=== PATIENT | female | born 1955 | race Caucasian/White ===

== ENCOUNTER 2024-04-24 02:45 | Outpatient (CLI) | payer MEDICARE, SELFPAY ==
[2024-04-24 08:57] LABS: Abs Immature Grans 0.09 10^3/uL (0.0-0.06); Absolute Basophil Count 0.08 10^3/uL (0.0-0.2); Absolute Eosinophil Count 0.26 10^3/uL (0.0-0.7); Absolute Lymphocyte Count 1.45 10^3/uL (1.2-3.4); Absolute Monocyte Count 0.55 10^3/uL (0.1-0.8); Absolute Neutrophil Count 5.56 10^3/uL (1.2-6.7); Eosinophils % 3.3 %; HCT 43.1 % (36.0-46.0); HGB 14.6 g/dL (11.2-15.7); Immature Grans % 1.1 %; Lymphocytes % 18.1 %; MCH 29.4 pg (27.0-33.0); MCHC 33.9 % (32.0-36.0); MCV 87 fL (80-95); Monocytes % 6.9 %; Neutrophils % 69.6 %; Platelet Count 222 10^3/uL (130-400); RBC 4.97 10^6/uL (3.93-5.22); RDW-SD 44.3 fL; WBC 7.99 10^3/uL (4.4-10.8)
[2024-04-24 09:18] LABS: ALT 49 U/L (14-59); AST 32 U/L (15-37); Albumin 3.5 g/dL (3.4-5.0); Alkaline Phosphatase 181 U/L (46-116); Anion Gap 10.5 mmol/L (3-11); BUN 22 mg/dL (7-18); Bilirubin, Total 0.52 mg/dL (0.2-1.0); CO2 29.5 mmol/L (21.0-32.0); CREATININE 1.5 mg/dL (0.55-1.02); Calcium 9.1 mg/dL (8.5-10.1); Chloride 99 mmol/L (98-107); Estimated GFR 37.96 (mL/min/1.73m2); Glucose 337 mg/dL (74-106); Magnesium 1.4 mg/dL (1.8-2.4); Potassium 3.7 mmol/L (3.5-5.1); Sodium 139 mmol/L (136-145); Total Protein 7.5 g/dL (6.4-8.2)
== END 2024-04-24 02:46 | disposition home or self-care (01) ==
PROVIDERS: PCP Nurse Practitioner Family; Visit Provider Internal Medicine Medical Oncology
DX: C34.32 Malignant neoplasm of lower lobe, left bronchus or lung (principal)
CPT/HCPCS: 36415; 80053; 83735; 85025

== ENCOUNTER 2024-05-01 10:05 | Outpatient (REF) | payer MEDICARE, SELFPAY ==
[2024-05-01 10:51] LABS: Abs Immature Grans 0.05 10^3/uL (0.0-0.06); Absolute Basophil Count 0.04 10^3/uL (0.0-0.2); Absolute Eosinophil Count 0.21 10^3/uL (0.0-0.7); Absolute Monocyte Count 0.26 10^3/uL (0.1-0.8); Absolute Neutrophil Count 4.74 10^3/uL (1.2-6.7); Basophils % 0.6 %; Eosinophils % 3.2 %; HCT 41.9 % (36.0-46.0); HGB 14.4 g/dL (11.2-15.7); Immature Grans % 0.8 %; Lymphocytes % 18.5 %; MCH 29.6 pg (27.0-33.0); MCHC 34.4 % (32.0-36.0); MCV 86 fL (80-95); MPV 12.7 fL (8.0-11.0); Neutrophils % 72.9 %; Platelet Count 202 10^3/uL (130-400); RBC 4.86 10^6/uL (3.93-5.22); RDW-SD 43.9 fL
[2024-05-01 11:01] LABS: ALT 51 U/L (14-59); AST 44 U/L (15-37); Albumin 3.6 g/dL (3.4-5.0); Alkaline Phosphatase 191 U/L (46-116); Anion Gap 12.9 mmol/L (3-11); BUN 25 mg/dL (7-18); Bilirubin, Total 0.59 mg/dL (0.2-1.0); CO2 25.1 mmol/L (21.0-32.0); CREATININE 1.5 mg/dL (0.55-1.02); Calcium 9.7 mg/dL (8.5-10.1); Chloride 99 mmol/L (98-107); Estimated GFR 37.96 (mL/min/1.73m2); Glucose 341 mg/dL (74-106); Magnesium 1.5 mg/dL (1.8-2.4); Potassium 4.3 mmol/L (3.5-5.1); Sodium 137 mmol/L (136-145); Total Protein 7.7 g/dL (6.4-8.2)
== END 2024-05-01 10:06 | disposition home or self-care (01) ==
LOC: LBN 10:05
PROVIDERS: PCP Nurse Practitioner Family; Visit Provider Internal Medicine Medical Oncology
DX: C34.32 Malignant neoplasm of lower lobe, left bronchus or lung (principal)
CPT/HCPCS: 80053; 83735; 85025

== ENCOUNTER 2024-05-08 03:09 | Outpatient (CLI) | payer MEDICARE, SELFPAY ==
[2024-05-08 08:11] LABS: Abs Immature Grans 0.06 10^3/uL (0.0-0.06); Absolute Basophil Count 0.06 10^3/uL (0.0-0.2); Absolute Eosinophil Count 0.15 10^3/uL (0.0-0.7); Absolute Lymphocyte Count 1.27 10^3/uL (1.2-3.4); Absolute Monocyte Count 0.37 10^3/uL (0.1-0.8); Absolute Neutrophil Count 2.62 10^3/uL (1.2-6.7); Basophils % 1.3 %; Eosinophils % 3.3 %; HCT 42.6 % (36.0-46.0); HGB 14.4 g/dL (11.2-15.7); Immature Grans % 1.3 %; MCH 29.6 pg (27.0-33.0); MCHC 33.8 % (32.0-36.0); MCV 88 fL (80-95); MPV 12.2 fL (8.0-11.0); Monocytes % 8.2 %; Neutrophils % 57.9 %; Platelet Count 223 10^3/uL (130-400); RBC 4.87 10^6/uL (3.93-5.22); RDW 14.3 % (11.7-14.6); RDW-SD 45.1 fL; WBC 4.53 10^3/uL (4.4-10.8)
[2024-05-08 08:27] LABS: ALT 45 U/L (14-59); AST 37 U/L (15-37); Albumin 3.6 g/dL (3.4-5.0); Alkaline Phosphatase 101 U/L (46-116); Anion Gap 9.2 mmol/L (3-11); BUN 32 mg/dL (7-18); Bilirubin, Total 0.81 mg/dL (0.2-1.0); CO2 27.8 mmol/L (21.0-32.0); CREATININE 2.2 mg/dL (0.55-1.02); Calcium 8.7 mg/dL (8.5-10.1); Chloride 96 mmol/L (98-107); Estimated GFR 23.97 (mL/min/1.73m2); Glucose 334 mg/dL (74-106); Magnesium 1.5 mg/dL (1.8-2.4); Potassium 3.7 mmol/L (3.5-5.1); Sodium 133 mmol/L (136-145); Total Protein 7.5 g/dL (6.4-8.2)
== END 2024-05-08 03:10 | disposition home or self-care (01) ==
PROVIDERS: PCP Nurse Practitioner Family; Visit Provider Internal Medicine Medical Oncology
DX: C34.32 Malignant neoplasm of lower lobe, left bronchus or lung (principal)
CPT/HCPCS: 36415; 80053; 83735; 85025

== ENCOUNTER 2024-05-22 04:13 | Outpatient (CLI) | payer MEDICARE, SELFPAY ==
[2024-05-22 07:41] LABS: Abs Immature Grans 0.14 10^3/uL (0.0-0.06); Absolute Basophil Count 0.07 10^3/uL (0.0-0.2); Absolute Eosinophil Count 0.28 10^3/uL (0.0-0.7); Absolute Lymphocyte Count 1.02 10^3/uL (1.2-3.4); Absolute Monocyte Count 0.73 10^3/uL (0.1-0.8); Absolute Neutrophil Count 4.82 10^3/uL (1.2-6.7); HGB 11.7 g/dL (11.2-15.7); Lymphocytes % 14.4 %; MCH 30.2 pg (27.0-33.0); MCHC 34.4 % (32.0-36.0); MCV 88 fL (80-95); MPV 11.7 fL (8.0-11.0); Monocytes % 10.3 %; Neutrophils % 68.3 %; Platelet Count 156 10^3/uL (130-400); RBC 3.87 10^6/uL (3.93-5.22); RDW 16.4 % (11.7-14.6); RDW-SD 49.7 fL; WBC 7.06 10^3/uL (4.4-10.8)
[2024-05-22 08:00] LABS: ALT 86 U/L (14-59); AST 35 U/L (15-37); Albumin 3.1 g/dL (3.4-5.0); Alkaline Phosphatase 142 U/L (46-116); Anion Gap 9.6 mmol/L (3-11); BUN 13 mg/dL (7-18); Bilirubin, Total 0.4 mg/dL (0.2-1.0); CO2 27.4 mmol/L (21.0-32.0); Calcium 8.5 mg/dL (8.5-10.1); Chloride 104 mmol/L (98-107); Estimated GFR 61.75 (mL/min/1.73m2); Glucose 266 mg/dL (74-106); Magnesium 0.9 mg/dL (1.8-2.4); Potassium 3.7 mmol/L (3.5-5.1); Sodium 141 mmol/L (136-145); Total Protein 6.4 g/dL (6.4-8.2)
== END 2024-05-22 04:14 | disposition home or self-care (01) ==
LOC: LBO 04:13
PROVIDERS: PCP Nurse Practitioner Family; Visit Provider Internal Medicine Medical Oncology
DX: C34.32 Malignant neoplasm of lower lobe, left bronchus or lung (principal)
CPT/HCPCS: 36415; 80053; 83735; 85025

== ENCOUNTER 2024-05-29 01:58 | Outpatient (CLI) | payer MEDICARE, SELFPAY ==
[2024-05-29 08:16] LABS: Abs Immature Grans 0.07 10^3/uL (0.0-0.06); Absolute Basophil Count 0.05 10^3/uL (0.0-0.2); Absolute Eosinophil Count 0.27 10^3/uL (0.0-0.7); Absolute Lymphocyte Count 1.14 10^3/uL (1.2-3.4); Absolute Monocyte Count 0.49 10^3/uL (0.1-0.8); Absolute Neutrophil Count 3.41 10^3/uL (1.2-6.7); Basophils % 0.9 %; HGB 11.2 g/dL (11.2-15.7); Immature Grans % 1.3 %; MCHC 33.9 % (32.0-36.0); MCV 91 fL (80-95); Neutrophils % 62.8 %; Platelet Count 149 10^3/uL (130-400); RBC 3.61 10^6/uL (3.93-5.22); RDW 17.8 % (11.7-14.6); RDW-SD 58.3 fL; WBC 5.43 10^3/uL (4.4-10.8)
[2024-05-29 08:31] LABS: ALT 60 U/L (14-59); AST 30 U/L (15-37); Albumin 3.2 g/dL (3.4-5.0); Alkaline Phosphatase 182 U/L (46-116); Anion Gap 7.3 mmol/L (3-11); BUN 18 mg/dL (7-18); Bilirubin, Total 0.3 mg/dL (0.2-1.0); CO2 27.7 mmol/L (21.0-32.0); CREATININE 1.1 mg/dL (0.55-1.02); Calcium 9.1 mg/dL (8.5-10.1); Chloride 102 mmol/L (98-107); Estimated GFR 55.07 (mL/min/1.73m2); Glucose 329 mg/dL (74-106); Magnesium 1.6 mg/dL (1.8-2.4); Potassium 4.4 mmol/L (3.5-5.1); Sodium 137 mmol/L (136-145); Total Protein 6.6 g/dL (6.4-8.2)
== END 2024-05-29 01:59 | disposition home or self-care (01) ==
PROVIDERS: PCP Nurse Practitioner Family; Visit Provider Internal Medicine Medical Oncology
DX: C34.32 Malignant neoplasm of lower lobe, left bronchus or lung (principal)
CPT/HCPCS: 36415; 80053; 83735; 85025

== ENCOUNTER 2024-06-05 02:44 | Outpatient (CLI) | payer MEDICARE, SELFPAY ==
[2024-06-05 09:36] LABS: Abs Immature Grans 0.08 10^3/uL (0.0-0.06); Absolute Basophil Count 0.05 10^3/uL (0.0-0.2); Absolute Eosinophil Count 0.27 10^3/uL (0.0-0.7); Absolute Lymphocyte Count 1.11 10^3/uL (1.2-3.4); Absolute Monocyte Count 0.32 10^3/uL (0.1-0.8); Absolute Neutrophil Count 3.87 10^3/uL (1.2-6.7); Basophils % 0.9 %; Eosinophils % 4.7 %; HCT 35.2 % (36.0-46.0); HGB 11.8 g/dL (11.2-15.7); Immature Grans % 1.4 %; Lymphocytes % 19.5 %; MCH 31.1 pg (27.0-33.0); MCHC 33.5 % (32.0-36.0); MCV 93 fL (80-95); MPV 10.9 fL (8.0-11.0); Monocytes % 5.6 %; Neutrophils % 67.9 %; Platelet Count 208 10^3/uL (130-400); RDW-SD 60.5 fL
[2024-06-05 10:50] LABS: ALT 92 U/L (14-59); AST 57 U/L (15-37); Albumin 3.5 g/dL (3.4-5.0); Alkaline Phosphatase 169 U/L (46-116); Anion Gap 8.5 mmol/L (3-11); BUN 21 mg/dL (7-18); Bilirubin, Total 0.4 mg/dL (0.2-1.0); CO2 28.5 mmol/L (21.0-32.0); CREATININE 1.1 mg/dL (0.55-1.02); Calcium 9.1 mg/dL (8.5-10.1); Chloride 103 mmol/L (98-107); Estimated GFR 55.07 (mL/min/1.73m2); Glucose 235 mg/dL (74-106); Magnesium 1.7 mg/dL (1.8-2.4); Potassium 4.9 mmol/L (3.5-5.1); Sodium 140 mmol/L (136-145); Total Protein 6.7 g/dL (6.4-8.2)
== END 2024-06-05 02:45 | disposition home or self-care (01) ==
LOC: LBO 02:44
PROVIDERS: PCP Nurse Practitioner Family; Visit Provider Internal Medicine Medical Oncology
DX: C34.32 Malignant neoplasm of lower lobe, left bronchus or lung (principal)
CPT/HCPCS: 36415; 80053; 83735; 85025

== ENCOUNTER 2024-06-12 01:53 | Outpatient (CLI) | payer MEDICARE, SELFPAY ==
[2024-06-12 10:30] LABS: Abs Immature Grans 0.04 10^3/uL (0.0-0.06); Absolute Basophil Count 0.04 10^3/uL (0.0-0.2); Absolute Eosinophil Count 0.08 10^3/uL (0.0-0.7); Absolute Lymphocyte Count 1.09 10^3/uL (1.2-3.4); Absolute Monocyte Count 0.31 10^3/uL (0.1-0.8); Absolute Neutrophil Count 2.71 10^3/uL (1.2-6.7); Basophils % 0.9 %; Eosinophils % 1.9 %; HCT 32.3 % (36.0-46.0); HGB 10.8 g/dL (11.2-15.7); Immature Grans % 0.9 %; Lymphocytes % 25.5 %; MCH 31.6 pg (27.0-33.0); MCHC 33.4 % (32.0-36.0); MCV 94 fL (80-95); MPV 10.9 fL (8.0-11.0); Monocytes % 7.3 %; Neutrophils % 63.5 %; Platelet Count 198 10^3/uL (130-400); RBC 3.42 10^6/uL (3.93-5.22); RDW 18.5 % (11.7-14.6); WBC 4.27 10^3/uL (4.4-10.8)
[2024-06-12 10:45] LABS: ALT 174 U/L (14-59); AST 160 U/L (15-37); Albumin 3.5 g/dL (3.4-5.0); Alkaline Phosphatase 146 U/L (46-116); Anion Gap 9.8 mmol/L (3-11); BUN 16 mg/dL (7-18); Bilirubin, Total 0.5 mg/dL (0.2-1.0); CO2 25.2 mmol/L (21.0-32.0); CREATININE 1.3 mg/dL (0.55-1.02); Calcium 9.3 mg/dL (8.5-10.1); Chloride 106 mmol/L (98-107); Estimated GFR 45.07 (mL/min/1.73m2); Glucose 216 mg/dL (74-106); Magnesium 1.4 mg/dL (1.8-2.4); Potassium 4.9 mmol/L (3.5-5.1); Sodium 141 mmol/L (136-145); Total Protein 6.7 g/dL (6.4-8.2)
== END 2024-06-12 01:54 | disposition home or self-care (01) ==
LOC: LBO 01:53
PROVIDERS: PCP Nurse Practitioner Family; Visit Provider Internal Medicine Medical Oncology
DX: C34.32 Malignant neoplasm of lower lobe, left bronchus or lung (principal)
CPT/HCPCS: 36415; 80053; 83735; 85025

== ENCOUNTER 2024-06-20 02:31 | Outpatient (CLI) | payer MEDICARE, SELFPAY ==
[2024-06-20 09:43] LABS: Abs Immature Grans 0.06 10^3/uL (0.0-0.06); Absolute Basophil Count 0.05 10^3/uL (0.0-0.2); Absolute Eosinophil Count 0.07 10^3/uL (0.0-0.7); Absolute Lymphocyte Count 0.85 10^3/uL (1.2-3.4); Absolute Monocyte Count 0.51 10^3/uL (0.1-0.8); Absolute Neutrophil Count 3.73 10^3/uL (1.2-6.7); Basophils % 0.9 %; Eosinophils % 1.3 %; HCT 33.6 % (36.0-46.0); HGB 11.6 g/dL (11.2-15.7); Immature Grans % 1.1 %; Lymphocytes % 16.1 %; MCH 32.8 pg (27.0-33.0); MCHC 34.5 % (32.0-36.0); MCV 95 fL (80-95); MPV 11.6 fL (8.0-11.0); Monocytes % 9.7 %; Neutrophils % 70.9 %; Platelet Count 165 10^3/uL (130-400); RBC 3.54 10^6/uL (3.93-5.22); RDW 19.4 % (11.7-14.6); RDW-SD 66.2 fL; WBC 5.27 10^3/uL (4.4-10.8)
[2024-06-20 09:59] LABS: ALT 252 U/L (14-59); AST 97 U/L (15-37); Albumin 3.5 g/dL (3.4-5.0); Alkaline Phosphatase 147 U/L (46-116); Anion Gap 11.3 mmol/L (3-11); BUN 16 mg/dL (7-18); Bilirubin, Total 0.5 mg/dL (0.2-1.0); CO2 27.7 mmol/L (21.0-32.0); CREATININE 1.1 mg/dL (0.55-1.02); Calcium 9.1 mg/dL (8.5-10.1); Chloride 102 mmol/L (98-107); Estimated GFR 55.07 (mL/min/1.73m2); Glucose 138 mg/dL (74-106); Magnesium 1.4 mg/dL (1.8-2.4); Sodium 141 mmol/L (136-145); Total Protein 6.7 g/dL (6.4-8.2)
== END 2024-06-20 02:32 | disposition home or self-care (01) ==
LOC: LBO 02:32
PROVIDERS: PCP Nurse Practitioner Family; Visit Provider Internal Medicine Medical Oncology
DX: C34.32 Malignant neoplasm of lower lobe, left bronchus or lung (principal)
CPT/HCPCS: 36415; 80053; 83735; 85025

== ENCOUNTER 2024-07-03 10:23 | Outpatient (CLI) | payer MEDICARE, SELFPAY ==
[2024-07-03 10:29] LABS: Abs Immature Grans 0.12 10^3/uL (0.0-0.06); Absolute Basophil Count 0.06 10^3/uL (0.0-0.2); Absolute Eosinophil Count 0.13 10^3/uL (0.0-0.7); Absolute Lymphocyte Count 1.16 10^3/uL (1.2-3.4); Absolute Monocyte Count 0.46 10^3/uL (0.1-0.8); Absolute Neutrophil Count 4.08 10^3/uL (1.2-6.7); Eosinophils % 2.2 %; HCT 34.2 % (36.0-46.0); HGB 11.3 g/dL (11.2-15.7); Lymphocytes % 19.3 %; MCH 33.3 pg (27.0-33.0); MCV 101 fL (80-95); MPV 10.7 fL (8.0-11.0); Monocytes % 7.7 %; Neutrophils % 67.8 %; Platelet Count 178 10^3/uL (130-400); RBC 3.39 10^6/uL (3.93-5.22); RDW-SD 74.4 fL; WBC 6.01 10^3/uL (4.4-10.8)
[2024-07-03 10:53] LABS: ALT 161 U/L (14-59); AST 69 U/L (15-37); Albumin 3.5 g/dL (3.4-5.0); Alkaline Phosphatase 115 U/L (46-116); Anion Gap 7.1 mmol/L (3-11); BUN 21 mg/dL (7-18); Bilirubin, Total 0.4 mg/dL (0.2-1.0); CO2 27.9 mmol/L (21.0-32.0); CREATININE 1.2 mg/dL (0.55-1.02); Calcium 9.2 mg/dL (8.5-10.1); Chloride 102 mmol/L (98-107); Estimated GFR 49.61 (mL/min/1.73m2); Glucose 131 mg/dL (74-106); Magnesium 1.6 mg/dL (1.8-2.4); Potassium 4.4 mmol/L (3.5-5.1); Sodium 137 mmol/L (136-145); Total Protein 6.7 g/dL (6.4-8.2)
[2024-07-03 11:03] LABS: TSH 90.06 uIU/mL (0.36-3.74)
[2024-07-03 11:10] LABS: FREE T4 < 0.10 ng/dL (0.76-1.46)
== END 2024-07-03 11:00 | disposition home or self-care (01) ==
PROVIDERS: Internal Medicine Medical Oncology; PCP Nurse Practitioner Family; Visit Provider Nurse Practitioner Family
DX: C34.32 Malignant neoplasm of lower lobe, left bronchus or lung; Z79.899 Other long term (current) drug therapy
CPT/HCPCS: 80053; 83735; 84439; 84443; 85025

== ENCOUNTER 2024-08-01 02:40 | Outpatient (CLI) | payer MEDICARE, SELFPAY ==
[2024-08-01 09:04] LABS: Abs Immature Grans 0.02 10^3/uL (0.0-0.06); Absolute Basophil Count 0.04 10^3/uL (0.0-0.2); Absolute Eosinophil Count 0.13 10^3/uL (0.0-0.7); Absolute Lymphocyte Count 0.97 10^3/uL (1.2-3.4); Absolute Monocyte Count 0.74 10^3/uL (0.1-0.8); Absolute Neutrophil Count 4.22 10^3/uL (1.2-6.7); Basophils % 0.7 %; Eosinophils % 2.1 %; HCT 33.5 % (36.0-46.0); HGB 11.1 g/dL (11.2-15.7); Immature Grans % 0.3 %; Lymphocytes % 15.8 %; MCH 34.3 pg (27.0-33.0); MCHC 33.1 % (32.0-36.0); MCV 103 fL (80-95); Monocytes % 12.1 %; Platelet Count 227 10^3/uL (130-400); RBC 3.24 10^6/uL (3.93-5.22); RDW 14.2 % (11.7-14.6); RDW-SD 54.2 fL; WBC 6.12 10^3/uL (4.4-10.8)
[2024-08-01 09:45] LABS: ALT 58 U/L (14-59); AST 27 U/L (15-37); Albumin 3.5 g/dL (3.4-5.0); Alkaline Phosphatase 120 U/L (46-116); Anion Gap 7.5 mmol/L (3-11); BUN 19 mg/dL (7-18); Bilirubin, Total 0.4 mg/dL (0.2-1.0); CO2 28.5 mmol/L (21.0-32.0); CREATININE 0.9 mg/dL (0.55-1.02); Calcium 9.4 mg/dL (8.5-10.1); Chloride 106 mmol/L (98-107); Estimated GFR 70.07 (mL/min/1.73m2); FREE T4 1.41 ng/dL (0.76-1.46); Glucose 135 mg/dL (74-106); Magnesium 1.7 mg/dL (1.8-2.4); Potassium 4.3 mmol/L (3.5-5.1); Sodium 142 mmol/L (136-145); TSH 5.24 uIU/mL (0.36-3.74); Total Protein 6.8 g/dL (6.4-8.2)
== END 2024-08-01 02:41 | disposition home or self-care (01) ==
LOC: LBO 02:40
PROVIDERS: PCP Nurse Practitioner Family; Visit Provider Internal Medicine Medical Oncology
DX: Z79.899 Other long term (current) drug therapy (principal); C34.32 Malignant neoplasm of lower lobe, left bronchus or lung; C34.31 Malignant neoplasm of lower lobe, right bronchus or lung
CPT/HCPCS: 36415; 80053; 83735; 84439; 84443; 85025

== ENCOUNTER 2024-08-28 00:44 | Outpatient (CLI) | payer MEDICARE, SELFPAY ==
[2024-08-28 10:25] LABS: Abs Immature Grans 0.03 10^3/uL (0.0-0.06); Absolute Basophil Count 0.05 10^3/uL (0.0-0.2); Absolute Eosinophil Count 0.31 10^3/uL (0.0-0.7); Absolute Lymphocyte Count 1.34 10^3/uL (1.2-3.4); Absolute Monocyte Count 0.95 10^3/uL (0.1-0.8); Absolute Neutrophil Count 4.48 10^3/uL (1.2-6.7); Basophils % 0.7 %; Eosinophils % 4.3 %; HCT 35.2 % (36.0-46.0); HGB 11.8 g/dL (11.2-15.7); Immature Grans % 0.4 %; Lymphocytes % 18.7 %; MCH 32.4 pg (27.0-33.0); MCHC 33.5 % (32.0-36.0); MCV 97 fL (80-95); MPV 10.1 fL (8.0-11.0); Monocytes % 13.3 %; Neutrophils % 62.6 %; Platelet Count 233 10^3/uL (130-400); RBC 3.64 10^6/uL (3.93-5.22); RDW-SD 42.7 fL; WBC 7.16 10^3/uL (4.4-10.8)
[2024-08-28 11:02] LABS: ALT 23 U/L (14-59); AST 13 U/L (15-37); Albumin 3.3 g/dL (3.4-5.0); Alkaline Phosphatase 102 U/L (46-116); Anion Gap 6.5 mmol/L (3-11); BUN 22 mg/dL (7-18); Bilirubin, Total 0.4 mg/dL (0.2-1.0); CO2 30.5 mmol/L (21.0-32.0); CREATININE 0.8 mg/dL (0.55-1.02); Calcium 9.1 mg/dL (8.5-10.1); Chloride 105 mmol/L (98-107); Estimated GFR 80.71 (mL/min/1.73m2); FREE T4 1.36 ng/dL (0.76-1.46); Glucose 223 mg/dL (74-106); Magnesium 1.6 mg/dL (1.8-2.4); Potassium 4.6 mmol/L (3.5-5.1); Sodium 142 mmol/L (136-145); TSH 0.35 uIU/mL (0.36-3.74); Total Protein 6.9 g/dL (6.4-8.2)
== END 2024-08-28 00:45 | disposition home or self-care (01) ==
LOC: LBO 00:44
PROVIDERS: PCP Nurse Practitioner Family; Visit Provider Internal Medicine Medical Oncology
DX: Z79.899 Other long term (current) drug therapy (principal); C34.32 Malignant neoplasm of lower lobe, left bronchus or lung; C34.31 Malignant neoplasm of lower lobe, right bronchus or lung
CPT/HCPCS: 36415; 80053; 83735; 84439; 84443; 85025

== ENCOUNTER 2024-10-23 04:39 | Outpatient (CLI) | payer MEDICARE, SELFPAY ==
[2024-10-23 10:59] LABS: Abs Immature Grans 0.10 10^3/uL (0.0-0.06); HCT 31.0 % (36.0-46.0); HGB 10.3 g/dL (11.2-15.7); Immature Grans % 1.2 %; MCH 29.3 pg (27.0-33.0); MCHC 33.2 % (32.0-36.0); MCV 88 fL (80-95); MPV 10.9 fL (8.0-11.0); Platelet Count 239 10^3/uL (130-400); RBC 3.51 10^6/uL (3.93-5.22); RDW 15.1 % (11.7-14.6); RDW-SD 48.7 fL; WBC 8.18 10^3/uL (4.4-10.8)
[2024-10-23 11:22] LABS: ALT 15 U/L (14-59); AST 18 U/L (15-37); Albumin 2.1 g/dL (3.4-5.0); Alkaline Phosphatase 129 U/L (46-116); Anion Gap 11.8 mmol/L (3-11); BUN 14 mg/dL (7-18); Bilirubin, Total 0.3 mg/dL (0.2-1.0); CO2 27.2 mmol/L (21.0-32.0); Chloride 103 mmol/L (98-107); Estimated GFR 94.73 (mL/min/1.73m2); Glucose 141 mg/dL (74-106); Sodium 142 mmol/L (136-145); TSH 4.44 uIU/mL (0.36-3.74); Total Protein 5.8 g/dL (6.4-8.2)
[2024-10-23 11:23] LABS: Magnesium 0.7 mg/dL (1.8-2.4)
[2024-10-23 11:28] LABS: Calcium 5.7 mg/dL (8.5-10.1); Potassium 2.8 mmol/L (3.5-5.1)
== END 2024-10-23 04:40 | disposition home or self-care (01) ==
LOC: LBO 04:39
PROVIDERS: PCP Nurse Practitioner Family; Visit Provider Internal Medicine Medical Oncology
DX: Z79.899 Other long term (current) drug therapy (principal); C34.32 Malignant neoplasm of lower lobe, left bronchus or lung
CPT/HCPCS: 36415; 80053; 83735; 84439; 84443; 85025

== ENCOUNTER 2024-11-27 01:45 | Outpatient (CLI) | payer MEDICARE, SELFPAY ==
[2024-11-27 10:14] LABS: Abs Immature Grans 0.05 10^3/uL (0.0-0.06); HCT 29.9 % (36.0-46.0); HGB 9.0 g/dL (11.2-15.7); Immature Grans % 0.7 %; MCH 26.9 pg (27.0-33.0); MCHC 30.1 % (32.0-36.0); MCV 89 fL (80-95); MPV 10.9 fL (8.0-11.0); Platelet Count 310 10^3/uL (130-400); RBC 3.35 10^6/uL (3.93-5.22); RDW 15.8 % (11.7-14.6); RDW-SD 52.2 fL; WBC 7.67 10^3/uL (4.4-10.8)
[2024-11-27 10:38] LABS: ALT 19 U/L (14-59); AST 16 U/L (15-37); Albumin 2.7 g/dL (3.4-5.0); Alkaline Phosphatase 114 U/L (46-116); Anion Gap 3.9 mmol/L (3-11); BUN 17 mg/dL (7-18); Bilirubin, Total 0.2 mg/dL (0.2-1.0); CO2 33.1 mmol/L (21.0-32.0); Calcium 9.2 mg/dL (8.5-10.1); Chloride 102 mmol/L (98-107); Estimated GFR 80.71 (mL/min/1.73m2); Glucose 92 mg/dL (74-106); Magnesium 1.7 mg/dL (1.8-2.4); Potassium 5.2 mmol/L (3.5-5.1); Sodium 139 mmol/L (136-145); TSH 9.62 uIU/mL (0.36-3.74); Total Protein 6.4 g/dL (6.4-8.2)
== END 2024-11-27 01:46 | disposition home or self-care (01) ==
LOC: LBO 01:45
PROVIDERS: PCP Nurse Practitioner Family; Visit Provider Internal Medicine Medical Oncology
DX: Z79.899 Other long term (current) drug therapy (principal)
CPT/HCPCS: 36415; 80053; 83735; 84439; 84443; 85025

== ENCOUNTER 2024-12-26 03:24 | Outpatient (CLI) | payer MEDICARE, SELFPAY ==
[2024-12-26 13:03] LABS: Abs Immature Grans 0.13 10^3/uL (0.0-0.06); HCT 27.0 % (36.0-46.0); HGB 8.2 g/dL (11.2-15.7); Immature Grans % 1.6 %; MCH 24.6 pg (27.0-33.0); MCHC 30.4 % (32.0-36.0); MCV 81 fL (80-95); MPV 9.8 fL (8.0-11.0); Platelet Count 479 10^3/uL (130-400); RBC 3.33 10^6/uL (3.93-5.22); RDW 18.6 % (11.7-14.6); RDW-SD 53.7 fL; WBC 7.96 10^3/uL (4.4-10.8)
[2024-12-26 13:23] LABS: Anisocytosis 2+; Hypochromasia 1+; Microcytosis 2+; Polychromasia Present
[2024-12-26 13:44] LABS: ALT 12 U/L (14-59); AST 13 U/L (15-37); Albumin 2.6 g/dL (3.4-5.0); Alkaline Phosphatase 88 U/L (46-116); Anion Gap 7.0 mmol/L (3-11); BUN 14 mg/dL (7-18); Bilirubin, Total 0.2 mg/dL (0.2-1.0); CO2 34.0 mmol/L (21.0-32.0); Calcium 8.9 mg/dL (8.5-10.1); Chloride 100 mmol/L (98-107); Estimated GFR 80.71 (mL/min/1.73m2); Glucose 81 mg/dL (74-106); Magnesium 1.7 mg/dL (1.8-2.4); Potassium 3.9 mmol/L (3.5-5.1); Sodium 141 mmol/L (136-145); TSH 22.93 uIU/mL (0.36-3.74); Total Protein 6.4 g/dL (6.4-8.2)
== END 2024-12-26 03:25 | disposition home or self-care (01) ==
LOC: LBO 03:24
PROVIDERS: PCP Nurse Practitioner Family; Visit Provider Internal Medicine Medical Oncology
DX: Z79.899 Other long term (current) drug therapy (principal)
CPT/HCPCS: 36415; 80053; 83735; 84439; 84443; 85025

== ENCOUNTER 2025-01-22 03:30 | Outpatient (CLI) | payer MEDICARE, SELFPAY ==
[2025-01-22 12:56] LABS: Abs Immature Grans 0.02 10^3/uL (0.0-0.06); HCT 31.8 % (36.0-46.0); HGB 9.3 g/dL (11.2-15.7); Immature Grans % 0.3 %; MCH 23.8 pg (27.0-33.0); MCHC 29.2 % (32.0-36.0); MCV 82 fL (80-95); MPV 10.3 fL (8.0-11.0); Platelet Count 275 10^3/uL (130-400); RBC 3.90 10^6/uL (3.93-5.22); RDW 18.3 % (11.7-14.6); RDW-SD 53.9 fL; WBC 6.56 10^3/uL (4.4-10.8)
[2025-01-22 13:29] LABS: ALT 20 U/L (14-59); AST 19 U/L (15-37); Albumin 2.8 g/dL (3.4-5.0); Alkaline Phosphatase 120 U/L (46-116); Anion Gap 4.7 mmol/L (3-11); BUN 17 mg/dL (7-18); Bilirubin, Total 0.2 mg/dL (0.2-1.0); CO2 35.3 mmol/L (21.0-32.0); Calcium 8.6 mg/dL (8.5-10.1); Chloride 102 mmol/L (98-107); Glucose 82 mg/dL (74-106); Magnesium 1.9 mg/dL (1.8-2.4); Potassium 4.9 mmol/L (3.5-5.1); Sodium 142 mmol/L (136-145); TSH 2.90 uIU/mL (0.36-3.74); Total Protein 7.0 g/dL (6.4-8.2)
== END 2025-01-22 03:31 | disposition home or self-care (01) ==
LOC: LBO 03:30
PROVIDERS: PCP Nurse Practitioner Family; Visit Provider Internal Medicine Medical Oncology
DX: Z79.899 Other long term (current) drug therapy (principal); C34.32 Malignant neoplasm of lower lobe, left bronchus or lung; C34.31 Malignant neoplasm of lower lobe, right bronchus or lung
CPT/HCPCS: 36415; 80053; 83735; 84439; 84443; 85025

== ENCOUNTER 2025-02-19 01:22 | Outpatient (CLI) | payer MEDICARE, SELFPAY ==
[2025-02-19 11:38] LABS: Abs Immature Grans 0.02 10^3/uL (0.0-0.06); HCT 34.2 % (36.0-46.0); HGB 10.4 g/dL (11.2-15.7); Immature Grans % 0.3 %; MCH 24.7 pg (27.0-33.0); MCHC 30.4 % (32.0-36.0); MCV 81 fL (80-95); MPV 10.1 fL (8.0-11.0); Platelet Count 231 10^3/uL (130-400); RBC 4.21 10^6/uL (3.93-5.22); RDW 18.1 % (11.7-14.6); RDW-SD 53.5 fL; WBC 6.02 10^3/uL (4.4-10.8)
[2025-02-19 11:56] LABS: Magnesium 1.6 mg/dL (1.6-2.6)
[2025-02-19 11:58] LABS: ALT 14 U/L (10-49); AST 18 U/L (<34); Albumin 3.8 g/dL (3.2-5.0); Alkaline Phosphatase 98 U/L (46-116); Anion Gap 8.2 mmol/L (3-11); BUN 18 mg/dL (9-23); Bilirubin, Total 0.30 mg/dL (0.2-1.2); CO2 30.8 mmol/L (20.0-31.0); Calcium 9.2 mg/dL (8.3-10.6); Chloride 104 mmol/L (98-107); Glucose 86 mg/dL (74-106); Potassium 3.8 mmol/L (3.5-5.1); Sodium 143 mmol/L (136-145); Total Protein 7.0 g/dL (5.7-8.2)
[2025-02-19 12:00] LABS: TSH 0.66 uIU/mL (0.55-4.78)
== END 2025-02-19 01:23 | disposition home or self-care (01) ==
LOC: LBO 01:22
PROVIDERS: PCP Nurse Practitioner Family; Visit Provider Internal Medicine Medical Oncology
DX: Z79.899 Other long term (current) drug therapy (principal); C34.32 Malignant neoplasm of lower lobe, left bronchus or lung; C34.31 Malignant neoplasm of lower lobe, right bronchus or lung
CPT/HCPCS: 36415; 80053; 83735; 84439; 84443; 85025